=== PATIENT | female | born 1970 | race African-American/Black ===

== ENCOUNTER 2016-11-16 01:27 | Emergency (ER) | payer MEDICARE ==
[2016-11-16 01:54] LABS: BASOPHILS 0.3 % (0.0-2.0); EOSINOPHILS 1.8 % (0-7); HEMATOCRIT 42.5 % (36.0-48.0); HEMOGLOBIN 14.1 g/dL (12-16); IMMATURE GRANULOCYTES 0.2 % (0-5); LYMPHOCYTES 44.3 % (15-50); MCH 29.6 pg (26.0-34.0); MCHC 33.2 g/dL (31.0-37.0); MCV 89.1 fL (80.0-100.0); MEAN PLATELET VOLUME 10.9 fL (7.4-10.4); MONOCYTES 10.1 % (2-11); NEUTROPHILS 43.3 % (40-80); PLATELET COUNT 251 10x3/uL (130-400); RBC 4.77 10x6/uL (4.00-5.40); RDW 14.1 % (11.5-14.5); WBC 11.6 10x3/uL (4.8-10.8)
[2016-11-16 02:17] LABS: ALBUMIN 3.7 g/dL (3.4-5.0); ALKALINE PHOSPHATASE 91 U/L (46-116); ALT (SGPT) 25 U/L (10-68); BILIRUBIN - TOTAL 0.48 mg/dL (0.2-1.3); CALC OSMOLALITY 284 mosm/kg (275-300); CALCIUM 9.7 mg/dL (8.5-10.1); CARBON DIOXIDE 33.1 mmol/L (21.0-32.0); CHLORIDE - SERUM 104 mmol/L (98-107); CKMB 0.9 U/L (0.0-3.6); CREATINE KINASE 215 UL (21-215); GLUCOSE 120 mg/dL (74-106); PROTEIN - SERUM 7.9 g/dL (6.4-8.2); SODIUM 143 mmol/L (136-145); UREA NITROGEN 10 mg/dL (7-18); eGFR NON AFRICAN AMERICAN 63 mL/min (90-120)
[2016-11-16 02:18] LABS: POTASSIUM - SERUM 2.5 mmol/L (3.5-5.1); TROPONIN-I < 0.017 ng/mL (0.000-0.060)
== END 2016-11-16 02:30 | disposition home or self-care (01) ==
LOC: D.ER 01:27
PROVIDERS: Emergency Medicine
DX: M25.512 Pain in left shoulder (principal); S46.912A Strain of unspecified muscle, fascia and tendon at shoulder and upper arm level, left arm, initial encounter; X58.XXXA Exposure to other specified factors, initial encounter; Y93.89 Activity, other specified; Y92.22 Religious institution as the place of occurrence of the external cause; E87.6 Hypokalemia; E78.00 Pure hypercholesterolemia, unspecified; I10 Essential (primary) hypertension; R00.0 Tachycardia, unspecified; I44.60 Unspecified fascicular block

== ENCOUNTER → 2016-12-18 09:46 | Outpatient (CLI) | payer MEDICARE | END | disposition home or self-care (01) | LOC: D.RT 09:46 | DX: R91.8 Other nonspecific abnormal finding of lung field (principal) ==

== ENCOUNTER 2017-01-25 11:03 | Emergency (ER) | payer MEDICARE ==
[2017-01-25 12:26] LABS: BASOPHILS 0.3 % (0.0-2.0); EOSINOPHILS 5.2 % (0-7); HEMATOCRIT 42.2 % (36.0-48.0); HEMOGLOBIN 14.1 g/dL (12-16); IMMATURE GRANULOCYTES 0.1 % (0-5); LYMPHOCYTES 44.2 % (15-50); MCHC 33.4 g/dL (31.0-37.0); MCV 89.8 fL (80.0-100.0); MEAN PLATELET VOLUME 10.7 fL (7.4-10.4); NEUTROPHILS 40.2 % (40-80); PLATELET COUNT 236 10x3/uL (130-400); RDW 14.8 % (11.5-14.5); WBC 9.4 10x3/uL (4.8-10.8)
[2017-01-25 12:53] LABS: ALBUMIN 3.6 g/dL (3.4-5.0); ALKALINE PHOSPHATASE 82 U/L (46-116); ALT (SGPT) 40 U/L (10-68); BILIRUBIN - TOTAL 0.59 mg/dL (0.2-1.3); CALC OSMOLALITY 282 mosm/kg (275-300); CALCIUM 9.3 mg/dL (8.5-10.1); CARBON DIOXIDE 35.4 mmol/L (21.0-32.0); CHLORIDE - SERUM 101 mmol/L (98-107); CREATININE - SERUM 0.9 mg/dL (0.6-1.3); GLUCOSE 120 mg/dL (74-106); PROTEIN - SERUM 7.9 g/dL (6.4-8.2); SODIUM 142 mmol/L (136-145); UREA NITROGEN 11 mg/dL (7-18); eGFR NON AFRICAN AMERICAN 72 mL/min (90-120)
[2017-01-25 12:58] LABS: POTASSIUM - SERUM 2.3 mmol/L (3.5-5.1); PRO BNP 3 pg/mL (0-125); TROPONIN-I < 0.017 ng/mL (0.000-0.060)
== END 2017-01-25 13:45 | disposition home or self-care (01) ==
LOC: D.ER 11:03
PROVIDERS: Family Medicine
DX: J06.9 Acute upper respiratory infection, unspecified (principal); E87.6 Hypokalemia; I10 Essential (primary) hypertension

== ENCOUNTER 2017-04-06 02:39 | Emergency (ER) | payer MEDICARE | END 2017-04-06 04:17 | disposition home or self-care (01) | LOC: D.ER 02:39 | DX: G44.209 Tension-type headache, unspecified, not intractable (principal); I10 Essential (primary) hypertension; E87.6 Hypokalemia ==

== ENCOUNTER 2017-05-12 14:36 | Emergency (ER) | payer MEDICARE | END 2017-05-12 16:32 | disposition home or self-care (01) | LOC: D.ER 14:36 | DX: S62.662A Nondisplaced fracture of distal phalanx of right middle finger, initial encounter for closed fracture (principal); X58.XXXA Exposure to other specified factors, initial encounter; Y93.89 Activity, other specified; Y92.830 Public park as the place of occurrence of the external cause; I10 Essential (primary) hypertension; E87.6 Hypokalemia ==

== ENCOUNTER 2017-08-29 00:37 | Emergency (ER) | payer MEDICARE | END 2017-08-29 02:27 | disposition home or self-care (01) | LOC: D.ER 00:37 | DX: R51 Headache (principal) ==

== ENCOUNTER 2017-09-14 17:28 | Emergency (ER) | payer MEDICARE | END 2017-09-14 21:00 | disposition home or self-care (01) | LOC: D.ER 17:28 | DX: M25.511 Pain in right shoulder (principal); I10 Essential (primary) hypertension ==

== ENCOUNTER 2017-10-16 20:16 | Emergency (ER) | payer MEDICARE | END 2017-10-16 21:27 | disposition home or self-care (01) | LOC: D.ER 20:16 | DX: M19.011 Primary osteoarthritis, right shoulder (principal); I10 Essential (primary) hypertension ==

== ENCOUNTER 2017-12-24 16:02 | Emergency (ER) | payer MEDICARE | END 2017-12-24 21:28 | disposition home or self-care (01) | LOC: D.ER 16:02 | DX: J01.90 Acute sinusitis, unspecified (principal); J06.9 Acute upper respiratory infection, unspecified; B34.9 Viral infection, unspecified; J11.1 Influenza due to unidentified influenza virus with other respiratory manifestations ==

== ENCOUNTER 2018-01-22 18:51 | Emergency (ER) | payer MEDICARE | END 2018-01-22 21:05 | disposition home or self-care (01) | LOC: D.ER 18:51 | DX: M54.6 Pain in thoracic spine (principal); M25.511 Pain in right shoulder; M25.512 Pain in left shoulder; M79.641 Pain in right hand; M19.90 Unspecified osteoarthritis, unspecified site ==

== ENCOUNTER 2018-02-09 20:51 | Emergency (ER) | payer MEDICARE | END 2018-02-09 22:40 | disposition home or self-care (01) | LOC: D.ER 20:51 | DX: M54.12 Radiculopathy, cervical region (principal); M75.21 Bicipital tendinitis, right shoulder; I10 Essential (primary) hypertension ==

== ENCOUNTER 2018-03-30 08:22 | Emergency (ER) | payer MEDICARE | END 2018-03-30 12:44 | disposition left against medical advice (07) | LOC: D.ER 08:22 | DX: Z02.9 Encounter for administrative examinations, unspecified (principal) ==

== ENCOUNTER 2018-03-30 21:43 | Emergency (ER) | payer MEDICARE ==
[2018-03-30 22:38] LABS: APPEARANCE HAZY (CLEAR); BILIRUBIN 2+ (NEGATIVE); COLOR YELLOW (YELLOW); GLUCOSE NEGATIVE (NEGATIVE); KETONE NEGATIVE (NEGATIVE); NITRITE NEGATIVE (NEGATIVE); PROTEIN NEGATIVE (NEGATIVE)
[2018-03-30 22:39] LABS: RED CELLS - URINE 0-5 /hpf (0-5); WHITE CELLS - URINE 0-5 /hpf (0-5)
[2018-03-30 22:40] LABS: BACTERIA FEW /hpf (NONE SEEN)
[2018-03-30 22:41] LABS: UDS - AMPHET NEGATIVE QUAL (NEGATIVE); UDS - BARB NEGATIVE QUAL (NEGATIVE); UDS - BENZO NEGATIVE QUAL (NEGATIVE); UDS - COCAINE NEGATIVE QUAL (NEGATIVE); UDS - OPIATE NEGATIVE QUAL (NEGATIVE); UDS - PCP NEGATIVE QUAL (NEGATIVE); UDS - THC NEGATIVE QUAL (NEGATIVE)
== END 2018-03-30 23:00 | disposition home or self-care (01) ==
LOC: D.ER 21:43
PROVIDERS: Nurse Practitioner Family
DX: J02.9 Acute pharyngitis, unspecified (principal)

== ENCOUNTER 2018-04-27 21:54 | Emergency (ER) | payer MEDICARE ==
[~2018-04-27] VITALS: Ht 167.6 cm; Wt 118.6 kg
[~2018-04-27 21:54] MED LIST: DOXYCYCLINE HY100 M2 PO; TYLENOL W/CODEI1 TAB PO
[2018-04-27 22:29] VITALS: Ht 167.6 cm; Wt 118.6 kg
[2018-04-28 00:44] VITALS: BP 116/78
== END 2018-04-28 00:45 | disposition home or self-care (01) ==
LOC: D.ER 21:54
DX: J32.9 Chronic sinusitis, unspecified (principal); R51 Headache; I10 Essential (primary) hypertension

== ENCOUNTER 2018-08-14 10:00 | Emergency (ER) | payer MEDICARE, MEDICAID ==
[~2018-08-14] VITALS: Ht 167.6 cm; Wt 119.1 kg
[2018-08-14 10:06] VITALS: Ht 167.6 cm; Wt 119.1 kg
[2018-08-14] MEDS ORDERED: HYDROCHLOROTH12.5 M1 (10:08)
[2018-08-14] MEDS ORDERED: VENTOLIN HFA18 GM (10:08)
[2018-08-14] MEDS ORDERED: METOPROLOL TART50 MG PO (10:08)
[2018-08-14] MEDS ORDERED: ZOCOR40 MG PO (10:08)
[2018-08-14] MEDS ORDERED: KEFLEX500 MG PO (10:59)
[2018-08-14] MEDS ORDERED: PHENERGAN DM SYR5 ML PO (10:59)
[2018-08-14] MEDS ORDERED: MEDROL DOSE PACK4 MG PO (10:59)
[2018-08-14] MEDS ORDERED: CLARITIN 10 MG10 MG PO (10:59)
[2018-08-14 11:09] VITALS: BP 151/99
== END 2018-08-14 11:10 | disposition home or self-care (01) ==
LOC: D.ER 10:00
DX: J45.998 Other asthma (principal); R09.89 Other specified symptoms and signs involving the circulatory and respiratory systems; I10 Essential (primary) hypertension

== ENCOUNTER 2018-09-01 01:18 | Emergency (ER) | payer MEDICARE, MEDICAID ==
[~2018-09-01] VITALS: Ht 167.6 cm; Wt 109.1 kg
[~2018-09-01 01:18] MED LIST changes: +CLARITIN 10 MG10 MG PO; +HYDROCHLOROTH12.5 M1; +KEFLEX500 MG PO; +MEDROL DOSE PACK4 MG PO; +METOPROLOL TART50 MG PO; +PHENERGAN DM SYR5 ML PO; +VENTOLIN HFA18 GM; +ZOCOR40 MG PO
[2018-09-01 01:26] VITALS: Ht 167.6 cm; Wt 109.1 kg
[2018-09-01 02:39] LABS: BASOPHILS 0.2 % (0-2); EOSINOPHILS 4.2 % (0-7); HEMATOCRIT 41.2 % (36.0-48.0); HEMOGLOBIN 13.8 g/dL (12-16); IMMATURE GRANULOCYTES 0.3 % (0-5); LYMPHOCYTES 47.8 % (15-50); MCH 30.1 pg (26.0-34.0); MCHC 33.5 g/dL (31.0-37.0); MCV 89.8 fL (80.0-100.0); MEAN PLATELET VOLUME 10.9 fL (7.4-10.4); MONOCYTES 8.2 % (2-11); NEUTROPHILS 39.3 % (40-80); PLATELET COUNT 274 10x3/uL (130-400); RBC 4.59 10x6/uL (4.00-5.40); RDW 14.6 % (11.5-14.5); WBC 10.7 10x3/uL (4.8-10.8)
[2018-09-01 03:01] LABS: ALBUMIN 3.4 g/dL (3.4-5.0); ALKALINE PHOSPHATASE 99 U/L (46-116); ALT (SGPT) 30 U/L (10-68); BILIRUBIN - TOTAL 0.24 mg/dL (0.2-1.3); CALC OSMOLALITY 284 mosm/kg (275-300); CARBON DIOXIDE 32.5 mmol/L (21.0-32.0); CHLORIDE - SERUM 101 mmol/L (98-107); CREATININE - SERUM 0.8 mg/dL (0.6-1.3); GLUCOSE 119 mg/dL (74-106); POTASSIUM - SERUM 3.2 mmol/L (3.5-5.1); PROTEIN - SERUM 7.9 g/dL (6.4-8.2); SODIUM 143 mmol/L (136-145); TROPONIN-I < 0.017 ng/mL (0.000-0.060); UREA NITROGEN 11 mg/dL (7-18); eGFR NON AFRICAN AMERICAN 81 mL/min (90-120)
[2018-09-01] MEDS ORDERED: DICLOFENAC SODI50 MG PO (03:08)
[2018-09-01 03:30] VITALS: BP 125/82
== END 2018-09-01 03:31 | disposition home or self-care (01) ==
LOC: D.ER 01:18
PROVIDERS: Family Medicine
DX: R07.89 Other chest pain (principal); I10 Essential (primary) hypertension

== ENCOUNTER 2018-10-03 11:43 | Emergency (ER) | payer MEDICARE, MEDICAID ==
[~2018-10-03 11:43] MED LIST changes: +DICLOFENAC SODI50 MG PO
[2018-10-03 11:50] VITALS: BP 124/68; Ht 167.6 cm
[2018-10-03] MEDS ORDERED: NORCO 7.5/325 T1 TA1 PO (12:36)
[2018-10-13 09:22] VITALS: Ht 167.6 cm
== END 2018-10-03 12:55 | disposition home or self-care (01) ==
LOC: D.ER 11:43
DX: M54.2 Cervicalgia (principal); M54.6 Pain in thoracic spine; I10 Essential (primary) hypertension; Z87.09 Personal history of other diseases of the respiratory system

== ENCOUNTER 2018-10-11 18:20 | Inpatient (IN) | payer MEDICARE, MEDICAID ==
[~2018-10-11] VITALS: Ht 167.6 cm; Wt 117.9 kg
--- NOTE | ~2018-10-11 | MORECARE ---
CASE MANAGEMENT DISCHARGE SUMMARY PATIENT: JASON MCKENZIE UNIT: [id number] ADM DATE: 10/11/18 AGE: 48 : 72 SEX: F ROOM/BED: D.2223 AUTHOR: ISABEL PRATT PHYSICIAN: REFERRING PHYSICIAN: SHAILESH CANALES MD DATE OF SERVICE: 10/13/18 Discharge Plan Patient Name: JASON MCKENZIE [facility] [facility] 1970 Planned Disposition: Home Anticipated Discharge Date: Discharge Date: Expected LOS: Initial Reviewer: [email or web address] Initial Review Date: 10/13/2018 Generated: 10/13/18 5:40 pm DCPIA - Discharge Planning Initial Assessment Updated by [email or web address]: Ivania Howe on 10/13/18 4:40 pm * Is the patient Alert and Oriented? Yes * How many steps to enter\exit or inside your home? 0/0 * PCP Dr. Zavala * Pharmacy [facility] * Preadmission Environment Home Alone * ADLs Independent * Equipment None * List name and contact numbers for known caregivers / representatives who currently or will assist patient after discharge: Jocerex - DTR - [phone] * Verbal permission to speak to the caregivers and representatives has been obtained from the patient. Yes * Community resources currently utilized None * Additional services required to return to the preadmission environment? No * Can the patient safely return to the preadmission environment? Yes * Has this patient been hospitalized within the prior 30 days at any hospital? No Patient Name: JASON MCKENZIE Page [id number] at 1640 All edits/amendments must be made on the electronic document DICTATION DATE: 10/13/18 1640 GELATIN MAKER UTILITY: KARLY 10/13/18 1640 RPT#: [id number] HI DATE: STATUS: ADM IN [facility] [address] [place] [address] END OF REPORT
--- NOTE | ~2018-10-11 | MORECARE ---
CASE MANAGEMENT DISCHARGE SUMMARY PATIENT: JASON MCKENZIE UNIT: [id number] ADM DATE: 10/11/18 AGE: 48 : 72 SEX: F ROOM/BED: D.2223 AUTHOR: ISABEL PRATT PHYSICIAN: REFERRING PHYSICIAN: SHAILESH CANALES MD DATE OF SERVICE: 10/15/18 Discharge Plan Patient Name: JASON MCKENZIE Facility: [facility]:[place] : 1970 Planned Disposition: Home Anticipated Discharge Date: Discharge Date: 10/14/2018 Expected LOS: Initial Reviewer: [email or web address] Initial Review Date: 10/13/2018 Generated: 10/15/18 4:06 pm Comments DCP- Discharge Planning Updated by [email or web address]: Ivania Howe on 10/14/18 9:[address] Patient Name: JASON MCKENZIE Encounter No: [id number] : 1970 Primary Insurance: [employer] MEDICARE ADV Anticipated DC Date: Planned Disposition: Home External Planned Provider: : DCP follow-up note: Patient in agreement with discharge plan. States her daughter will pick her up today. Declines HHS. States she has had dietary instruction and shows me her packet. No changes to plan. Case management will follow and assist as needed. Ivania Carley DCP- Discharge Planning Updated by [email or web address]: Ivania Howe on 10/13/18 3:[address] Patient Name: JASON MCKENZIE Admission Status: ER Accout number: [id number] Admission Date: 10-11-2018 : 1970 Admission Diagnosis: Attending: SHAILESH CANALES Current LOS: 2 Anticipated DC Date: Planned Disposition: Home Primary Insurance: [employer] MEDICARE ADV Discharge Planning Comments: CM met with patient to discuss discharge planning, her daughter and three grand children are in the room. She states she lives alone in a one story home. She is independent with all ADL's and IADL's. States she does not have any DME or need any DME. She declines need for home health services. States her discharge plan is to return home and it is a safe environment. States her daughter will take her home. No needs identified at this time. CM will continue to follow and assist with discharge planning/needs. Browning Processor: Ivania Howe DCPIA - Discharge Planning Initial Assessment Updated by [email or web address]: Ivania Howe on 10/13/18 4:40 pm * Is the patient Alert and Oriented? Yes * How many steps to enter\exit or inside your home? 0/0 * PCP Dr. Zavala * Pharmacy [facility] * Preadmission Environment Home Alone * ADLs Independent * Equipment None * List name and contact numbers for known caregivers / representatives who currently or will assist patient after discharge: Jocecalgutierrez [facility] - [phone] * Verbal permission to speak to the caregivers and representatives has been obtained from the patient. Yes * Community resources currently utilized None * Additional services required to return to the preadmission environment? No * Can the patient safely return to the preadmission environment? Yes * Has this patient been hospitalized within the prior 30 days at any hospital? No Coverage Notice Reviewer: [id number] - Ivania Howe Notice Issued Date-Time: 10/14/2018 10:08 Notice Type: IM Discharge Notice Notice Delivered To: Patient Relationship to Patient: Self Header Setup Operator Name: Delivery Method: HAND - Hand Delivered Frances Days: Prior Verbal Notification: Recipient Understood Notice: Yes Recipient Signature: Yes Med Rec Note Co-signed by Attending: Coverage Notice Comment: IMM explained, signed, copy given, original placed in MR Last DP export: 10/14/18 9:18 Patient Name: JASON MCKENZIE Page [id number] at 1506 All edits/amendments must be made on the electronic document DICTATION DATE: 10/15/[address] P[address] OPERATOR: KARLY 10/15/18 1505 RPT#: [id number] DC DATE:10/14/18 STATUS: DIS IN [facility] [address] [place] [address] END OF REPORT
--- NOTE | ~2018-10-11 | MORECARE ---
CASE MANAGEMENT DISCHARGE SUMMARY PATIENT: JASON MCKENZIE UNIT: [id number] ADM DATE: 10/11/18 AGE: 48 : 72 SEX: F ROOM/BED: D.2223 AUTHOR: SANTA,DOC PHYSICIAN: REFERRING PHYSICIAN: SHAILESH CANALES MD DATE OF SERVICE: 10/13/18 Discharge Plan Patient Name: JASON MCKENZIE [facility] [facility] 1970 Planned Disposition: Home Anticipated Discharge Date: Discharge Date: Expected LOS: Initial Reviewer: [email or web address] Initial Review Date: 10/13/2018 Generated: 10/13/18 5:47 pm Comments DCP- Discharge Planning Updated by [email or web address]: Ivania Howe on 10/13/18 3:[address] Patient Name: JASON MCKENZIE Admission Status: ER Accout number: [id number] Admission Date: 10-11-2018 : 1970 Admission Diagnosis: Attending: SHAILESH CANALES Current LOS: 2 Anticipated DC Date: Planned Disposition: Home Primary Insurance: [employer] MED[employer]ARE ADV Discharge Planning Comments: CM met with patient to discuss discharge planning, her daughter and three grand children are in the room. She states she lives alone in a one story home. She is independent with all ADL's and IADL's. States she does not have any DME or need any DME. She declines need for home health services. States her discharge plan is to return home and it is a safe environment. States her daughter will take her home. No needs identified at this time. CM will continue to follow and assist with discharge planning/needs. Provider Relations Representative: Ivania Howe DCPIA - Discharge Planning Initial Assessment Updated by [email or web address]: Ivania Howe on 10/13/18 4:40 pm * Is the patient Alert and Oriented? Yes * How many steps to enter\exit or inside your home? 0/0 * PCP Dr. Zavala * Pharmacy [facility] * Preadmission Environment Home Alone * ADLs Independent * Equipment None * List name and contact numbers for known caregivers / representatives who currently or will assist patient after discharge: Emmanuel [facility] - [phone] * Verbal permission to speak to the caregivers and representatives has been obtained from the patient. Yes * Community resources currently utilized None * Additional services required to return to the preadmission environment? No * Can the patient safely return to the preadmission environment? Yes * Has this patient been hospitalized within the prior 30 days at any hospital? No Last DP export: 10/13/18 3:40 Patient Name: JASON MCKENZIE Page [id number] at 1647 All edits/amendments must be made on the electronic document DICTATION DATE: 10/13/181646 CLOTHES DRIER ASSEMBLER: KARLY 10/13/181646 RPT#: [id number] DC DATE: STATUS: ADM IN [facility] [address] [place] [address] END OF REPORT
--- NOTE | ~2018-10-11 | MORECARE ---
CASE MANAGEMENT DISCHARGE SUMMARY PATIENT: JASON MCKENZIE UNIT: [id number] ADM DATE: 10/11/18 AGE: 48 : 72 SEX: F ROOM/BED: D.2223 AUTHOR: ISABEL PRATT PHYSICIAN: REFERRING PHYSICIAN: SHAILESH CANALES MD DATE OF SERVICE: 10/14/18 Discharge Plan Patient Name: JASON MCKENZIE Facility[facility] : 1970 Planned Disposition: Home Anticipated Discharge Date: Discharge Date: Expected LOS: Initial Reviewer: [email or web address] Initial Review Date: 10/13/2018 Generated: 10/14/18 11:18 am Comments DCP- Discharge Planning Updated by [email or web address]: Ivania Howe on 10/14/18 9:[address] Patient Name: JASON MCKENZIE Encounter No: [id number] : 1970 Primary Insurance: [employer] MEDICARE ADV Anticipated DC Date: Planned Disposition: Home External Planned Provider: : DCP follow-up note: Patient in agreement with discharge plan. States her daughter will pick her up today. Declines HHS. States she has had dietary instruction and shows me her packet. No changes to plan. Case management will follow and assist as needed. Ivania Howe DCP- Discharge Planning Updated by [email or web address]: Ivania Howe on 10/13/18 3:[address] Patient Name: JASON MCKENZIE Admission Status: ER Accout number: [id number] Admission Date: 10-11-2018 : 1970 Admission Diagnosis: Attending: SHAILESH CANALES Current LOS: 2 Anticipated DC Date: Planned Disposition: Home Primary Insurance: [employer] MED[employer]ARE ADV Discharge Planning Comments: CM met with patient to discuss discharge planning, her daughter and three grand children are in the room. She states she lives alone in a one story home. She is independent with all ADL's and IADL's. States she does not have any DME or need any DME. She declines need for home health services. States her discharge plan is to return home and it is a safe environment. States her daughter will take her home. No needs identified at this time. CM will continue to follow and assist with discharge planning/needs. Perioperative Educator: Ivania Howe DCPIA - Discharge Planning Initial Assessment Updated by [email or web address]: Ivania Howe on 10/13/18 4:40 pm * Is the patient Alert and Oriented? Yes * How many steps to enter\exit or inside your home? 0/0 * PCP Dr. Zavala * Pharmacy [facility] * Preadmission Environment Home Alone * ADLs Independent * Equipment None * List name and contact numbers for known caregivers / representatives who currently or will assist patient after discharge: Emmanuel [facility] - [phone] * Verbal permission to speak to the caregivers and representatives has been obtained from the patient. Yes * Community resources currently utilized None * Additional services required to return to the preadmission environment? No * Can the patient safely return to the preadmission environment? Yes * Has this patient been hospitalized within the prior 30 days at any hospital? No Coverage Notice Reviewer: [id number] - Ivania Howe Notice Issued Date-Time: 10/14/2018 10:08 Notice Type: IM Discharge Notice Notice Delivered To: Patient Relationship to Patient: Self Spinning Bath Patroller Name: Delivery Method: HAND - Hand Delivered Frances Days: Prior Verbal Notification: Recipient Understood Notice: Yes Recipient Signature: Yes Med Rec Note Co-signed by Attending: Coverage Notice Comment: IMM explained, signed, copy given, original placed in MR Last DP export: 10/13/18 3:47 Patient Name: JASON MCKENZIE Page 14414 at 1019 All edits/amendments must be made on the electronic document DICTATION DATE: 10/14/18 1018 PROJECT DEVELOPMENT ENGINEER: KARLY 10/14/18 1018 RPT#: [id number] DC DATE: STATUS: ADM IN [facility] [address] [place] [address] END OF REPORT
[~2018-10-11 18:20] MED LIST changes: +NORCO 7.5/325 T1 TA1 PO
[2018-10-11 19:38] LABS: HEMATOCRIT 39.8 % (36.0-48.0); HEMOGLOBIN 13.3 g/dL (12-16); MCH 29.8 pg (26.0-34.0); MCHC 33.4 g/dL (31.0-37.0); MCV 89.2 fL (80.0-100.0); MEAN PLATELET VOLUME 10.4 fL (7.4-10.4); PLATELET COUNT 261 10x3/uL (130-400); RBC 4.46 10x6/uL (4.00-5.40); RDW 14.3 % (11.5-14.5); WBC 8.1 10x3/uL (4.8-10.8)
[2018-10-11 19:40] LABS: ALBUMIN 3.4 g/dL (3.4-5.0); ALKALINE PHOSPHATASE 99 U/L (46-116); ALT (SGPT) 25 U/L (10-68); BILIRUBIN - TOTAL 0.24 mg/dL (0.2-1.3); CALC OSMOLALITY 282 mosm/kg (275-300); CALCIUM 9.4 mg/dL (8.5-10.1); CARBON DIOXIDE 34.8 mmol/L (21.0-32.0); CHLORIDE - SERUM 102 mmol/L (98-107); CREATININE - SERUM 0.8 mg/dL (0.6-1.3); GLUCOSE 139 mg/dL (74-106); PROTEIN - SERUM 7.6 g/dL (6.4-8.2); SODIUM 141 mmol/L (136-145); UREA NITROGEN 12 mg/dL (7-18); eGFR NON AFRICAN AMERICAN 81 mL/min (90-120)
[2018-10-11 19:44] LABS: POTASSIUM - SERUM 2.7 mmol/L (3.5-5.1)
[2018-10-11 20:08] LABS: EOSINOPHILS 9 % (0-7); LYMPHOCYTES 46 % (15-50); MONOCYTES 4 % (2-11); NEUTROPHILS 41 % (40-80); PLATELET ESTIMATE NORMAL
[2018-10-11 20:09] LABS: ROULEAUX OCC
[2018-10-11 21:02] LABS: LIPASE 227 U/L (73-393); PRO BNP 26 pg/mL (0-125)
[2018-10-11 21:08] LABS: TROPONIN-I < 0.017 ng/mL (0.000-0.060)
[2018-10-12] VITALS (7 sets, daily range): BP systolic 93–172; BP diastolic 59–92; BMI 42.0
[2018-10-12 00:33] LABS: APPEARANCE CLEAR (CLEAR); BILIRUBIN NEGATIVE (NEGATIVE); COLOR YELLOW (YELLOW); GLUCOSE NEGATIVE (NEGATIVE); KETONE NEGATIVE (NEGATIVE); NITRITE NEGATIVE (NEGATIVE); PROTEIN NEGATIVE (NEGATIVE); SPECIFIC GRAVITY 1.015 (1.005-1.020); UROBILINOGEN NORMAL (NORMAL)
[2018-10-12 00:37] LABS: BACTERIA FEW /hpf (NONE SEEN); EPITHELIAL CELLS 0-5 /hpf (0-5); RED CELLS - URINE NONE SEEN /hpf (0-5)
[2018-10-12 10:26] LABS: BASOPHILS 0 % (0-2); EOSINOPHILS 0 % (0-7); HEMATOCRIT 40.6 % (36.0-48.0); HEMOGLOBIN 13.9 g/dL (12-16); IMMATURE GRANULOCYTES 0.3 % (0-5); LYMPHOCYTES 22.3 % (15-50); MCH 30.4 pg (26.0-34.0); MCHC 34.2 g/dL (31.0-37.0); MCV 88.8 fL (80.0-100.0); MEAN PLATELET VOLUME 11.3 fL (7.4-10.4); MONOCYTES 1.6 % (2-11); NEUTROPHILS 75.8 % (40-80); PLATELET COUNT 293 10x3/uL (130-400); RBC 4.57 10x6/uL (4.00-5.40); RDW 14.3 % (11.5-14.5); WBC 10.1 10x3/uL (4.8-10.8)
[2018-10-12 10:40] LABS: ALBUMIN 3.2 g/dL (3.4-5.0); BILIRUBIN - TOTAL 0.34 mg/dL (0.2-1.3); CALCIUM 9.5 mg/dL (8.5-10.1); CARBON DIOXIDE 28.4 mmol/L (21.0-32.0); CREATININE - SERUM 0.9 mg/dL (0.6-1.3); MAGNESIUM - SERUM 1.5 mg/dL (1.8-2.4); PHOSPHOROUS 2.4 mg/dL (2.5-4.9); POTASSIUM - SERUM 3.4 mmol/L (3.5-5.1); PROTEIN - SERUM 7.4 g/dL (6.4-8.2)
[2018-10-13 04:19] LABS: HEMATOCRIT 38.3 % (36.0-48.0); MCH 30.2 pg (26.0-34.0); MCHC 33.9 g/dL (31.0-37.0); MCV 88.9 fL (80.0-100.0); MEAN PLATELET VOLUME 10.9 fL (7.4-10.4); PLATELET COUNT 287 10x3/uL (130-400); RBC 4.31 10x6/uL (4.00-5.40); RDW 14.6 % (11.5-14.5); WBC 20.3 10x3/uL (4.8-10.8)
[2018-10-13 04:41] LABS: ALBUMIN 3.1 g/dL (3.4-5.0); ALKALINE PHOSPHATASE 83 U/L (46-116); ALT (SGPT) 22 U/L (10-68); BILIRUBIN - TOTAL 0.21 mg/dL (0.2-1.3); CALC OSMOLALITY 284 mosm/kg (275-300); CARBON DIOXIDE 29.1 mmol/L (21.0-32.0); CHLORIDE - SERUM 104 mmol/L (98-107); CHOL - HDL RATIO 4.2 ratio (2.3-4.1); CHOLESTEROL, TOTAL 207 mg/dL (0-200); CREATININE - SERUM 0.8 mg/dL (0.6-1.3); GLUCOSE 205 mg/dL (74-106); HDL CHOLESTEROL 49 mg/dL (32-96); LDL CHOLESTEROL 147 mg/dL (0-100); POTASSIUM - SERUM 3.3 mmol/L (3.5-5.1); PROTEIN - SERUM 7.4 g/dL (6.4-8.2); SODIUM 140 mmol/L (136-145); TRIGLYCERIDE 58 mg/dL (30-200); UREA NITROGEN 13 mg/dL (7-18); eGFR NON AFRICAN AMERICAN 81 mL/min (90-120)
[2018-10-13 05:47] LABS: LYMPHOCYTES 14 % (15-50); MONOCYTES 4 % (2-11); NEUTROPHILS 77 % (40-80); PLATELET ESTIMATE NORMAL
[2018-10-13 05:52] VITALS: BP 110/70
[2018-10-13 05:52] LABS: PHOSPHOROUS 2.3 mg/dL (2.5-4.9)
[2018-10-13 06:03] LABS: MAGNESIUM - SERUM 1.9 mg/dL (1.8-2.4)
[2018-10-13 08:01] VITALS: BP 99/53
[2018-10-13 09:22] VITALS: Ht 167.6 cm; Wt 117.9 kg
[2018-10-13 17:41] VITALS: BP 99/71
[2018-10-13 22:38] VITALS: BP 138/93
[2018-10-14 01:06] VITALS: BP 124/66
[2018-10-14 05:02] LABS: BASOPHILS 0 % (0-2); EOSINOPHILS 0 % (0-7); HEMATOCRIT 35.3 % (36.0-48.0); LYMPHOCYTES 16.4 % (15-50); MCH 30.5 pg (26.0-34.0); MCV 89.6 fL (80.0-100.0); MEAN PLATELET VOLUME 10.9 fL (7.4-10.4); MONOCYTES 8.3 % (2-11); NEUTROPHILS 74.3 % (40-80); PLATELET COUNT 261 10x3/uL (130-400); RBC 3.94 10x6/uL (4.00-5.40); RDW 15.3 % (11.5-14.5); WBC 19.1 10x3/uL (4.8-10.8)
[2018-10-14 05:26] LABS: ALBUMIN 2.9 g/dL (3.4-5.0); ALKALINE PHOSPHATASE 68 U/L (46-116); ALT (SGPT) 20 U/L (10-68); BILIRUBIN - TOTAL 0.22 mg/dL (0.2-1.3); CALCIUM 8.4 mg/dL (8.5-10.1); CHLORIDE - SERUM 107 mmol/L (98-107); CREATININE - SERUM 0.8 mg/dL (0.6-1.3); POTASSIUM - SERUM 3.7 mmol/L (3.5-5.1); PROTEIN - SERUM 6.7 g/dL (6.4-8.2); SODIUM 142 mmol/L (136-145); UREA NITROGEN 16 mg/dL (7-18); eGFR NON AFRICAN AMERICAN 81 mL/min (90-120)
[2018-10-14 05:35] LABS: CALC OSMOLALITY 285 mosm/kg (275-300); GLUCOSE 133 mg/dL (74-106); PHOSPHOROUS 3.4 mg/dL (2.5-4.9)
[2018-10-14 06:31] VITALS: BP 129/85
[2018-10-14] MEDS ORDERED: TESSALON PERLE100 MG PO (09:26)
[2018-10-14] MEDS ORDERED: MUCINEX600 MG PO (09:26)
[2018-10-14] MEDS ORDERED: GLUCOPHAGE500 MG PO (09:26)
[2018-10-14] MEDS ORDERED: ZITHROMAX500 MG PO (09:26)
[2018-10-14] MEDS ORDERED: PREDNISONE10 MG PO (09:27)
[2018-10-14] MEDS ORDERED: OMNICEF300 MG PO (09:27)
[2018-10-14] MEDS ORDERED: BAYER CHEWABLE81 MG PO (09:28)
[2018-10-14] MEDS ORDERED: PRAVACHOL20 MG PO (09:28)
[2018-10-14 09:39] VITALS: BP 123/84
== END 2018-10-14 13:02 | disposition home or self-care (01) | DRG 194 ==
LOC: D.ER 18:20 → D.EDHOLD 22:11 → D.MS 22:11
PROVIDERS: Family Medicine
DX: J18.9 Pneumonia, unspecified organism (principal); Z68.41 Body mass index [BMI] 40.0-44.9, adult; I10 Essential (primary) hypertension; E66.9 Obesity, unspecified; Z71.3 Dietary counseling and surveillance; E87.6 Hypokalemia; E83.42 Hypomagnesemia; E83.39 Other disorders of phosphorus metabolism; E11.65 Type 2 diabetes mellitus with hyperglycemia

== ENCOUNTER 2018-11-13 10:54 | Emergency (ER) | payer MEDICARE, MEDICAID ==
[~2018-11-13] VITALS: Ht 167.6 cm; Wt 122.7 kg
[~2018-11-13 10:54] MED LIST changes: +BAYER CHEWABLE81 MG PO; +GLUCOPHAGE500 MG PO; +MUCINEX600 MG PO; +OMNICEF300 MG PO; +PRAVACHOL20 MG PO; +PREDNISONE10 MG PO; +TESSALON PERLE100 MG PO; +ZITHROMAX500 MG PO
[2018-11-13 11:03] VITALS: Ht 167.6 cm; Wt 122.7 kg
[2018-11-13] MEDS ORDERED: CORTISPORIN OTI10 M1 LEFT EAR (12:03)
[2018-11-13] MEDS ORDERED: VOLTAREN75 MG PO (12:05)
[2018-11-13] MEDS ORDERED: OMEPRAZOLE40 MG PO (12:05)
[2018-11-13 12:29] VITALS: BP 122/90
== END 2018-11-13 12:31 | disposition home or self-care (01) ==
LOC: D.ER 10:54
DX: H60.502 Unspecified acute noninfective otitis externa, left ear (principal); E11.9 Type 2 diabetes mellitus without complications; I10 Essential (primary) hypertension

== ENCOUNTER 2018-12-11 12:07 | Emergency (ER) | payer MEDICARE, MEDICAID ==
[~2018-12-11] VITALS: Ht 167.6 cm; Wt 122.7 kg
[~2018-12-11 12:07] MED LIST changes: +CORTISPORIN OTI10 M1 LEFT EAR; +OMEPRAZOLE40 MG PO; +VOLTAREN75 MG PO
[2018-12-11 12:31] VITALS: Ht 167.6 cm; Wt 122.7 kg
[2018-12-11] MEDS ORDERED: INDOCIN25 MG PO (14:32)
[2018-12-11 14:51] VITALS: BP 129/87
== END 2018-12-11 14:50 | disposition home or self-care (01) ==
LOC: D.ER 12:07
DX: M79.602 Pain in left arm (principal); M79.601 Pain in right arm; E11.9 Type 2 diabetes mellitus without complications; I10 Essential (primary) hypertension

== ENCOUNTER → 2018-12-22 18:45 | Outpatient (CLI) | payer MEDICARE, MEDICAID ==
[2018-12-11 12:31] VITALS: BMI 43.6
[~2018-12-22 18:45] MED LIST changes: +INDOCIN25 MG PO
== END | disposition home or self-care (01) ==
LOC: D.RT 09:15
DX: J45.901 Unspecified asthma with (acute) exacerbation (principal); J20.9 Acute bronchitis, unspecified

== ENCOUNTER → 2019-01-06 14:48 | Outpatient (CLI) | payer MEDICARE, MEDICAID ==
[2018-12-11 12:31] VITALS: BMI 43.6
== END | disposition home or self-care (01) ==
LOC: D.RAD 14:00
DX: J20.8 Acute bronchitis due to other specified organisms (principal)

== ENCOUNTER 2019-01-24 19:30 | Emergency (ER) | payer MEDICARE, MEDICAID ==
[~2019-01-24] VITALS: Ht 167.6 cm; Wt 123.2 kg
[2019-01-24 19:40] VITALS: Ht 167.6 cm; Wt 123.2 kg
[2019-01-24] MEDS ORDERED: KLOR-CON M2020 MEQ PO (19:45)
[2019-01-24] MEDS ORDERED: ULTRAM50 MG PO (21:22)
[2019-01-24 21:45] VITALS: BP 127/83
== END 2019-01-24 21:46 | disposition home or self-care (01) ==
LOC: D.ER 19:30
DX: M54.2 Cervicalgia (principal)

== ENCOUNTER 2019-03-31 20:26 | Emergency (ER) | payer MEDICARE, MEDICAID ==
[~2019-03-31] VITALS: Ht 167.6 cm; Wt 122.7 kg
[~2019-03-31 20:26] MED LIST changes: +KLOR-CON M2020 MEQ PO; +ULTRAM50 MG PO
[2019-03-31 20:32] VITALS: Ht 167.6 cm; Wt 122.7 kg
[2019-04-01 00:11] VITALS: BP 122/81
== END 2019-04-01 00:10 | disposition home or self-care (01) ==
LOC: D.ER 20:26
DX: M54.2 Cervicalgia (principal); M54.9 Dorsalgia, unspecified

== ENCOUNTER 2019-05-30 13:59 | Emergency (ER) | payer MEDICARE, MEDICAID ==
[~2019-05-30] VITALS: Ht 167.6 cm; Wt 125.9 kg
[2019-05-30 14:08] VITALS: Ht 167.6 cm; Wt 125.9 kg
[2019-05-30 15:45] LABS: APPEARANCE CLEAR (CLEAR); BILIRUBIN NEGATIVE (NEGATIVE); COLOR YELLOW (YELLOW); GLUCOSE NEGATIVE (NEGATIVE); KETONE NEGATIVE (NEGATIVE); NITRITE NEGATIVE (NEGATIVE); PROTEIN NEGATIVE (NEGATIVE); SPECIFIC GRAVITY 1.015 (1.005-1.020); UROBILINOGEN NORMAL (NORMAL)
[2019-05-30] MEDS ORDERED: ZANAFLEX4 MG PO (16:20)
[2019-05-30 16:50] VITALS: BP 141/96
== END 2019-05-30 16:50 | disposition home or self-care (01) ==
LOC: D.ER 13:59
PROVIDERS: Family Medicine
DX: M79.18 Myalgia, other site (principal); G44.209 Tension-type headache, unspecified, not intractable

== ENCOUNTER → 2019-06-30 14:25 | Outpatient (CLI) | payer MEDICARE, MEDICAID ==
[2019-05-30 14:08] VITALS: BMI 44.8
[~2019-06-30 14:25] MED LIST changes: +HYDROCODONE-A1 UDTA2 PO; +NAPROSYN500 MG PO; +ZANAFLEX4 MG PO
[2019-06-30 15:16] LABS: BASOPHILS 0.2 % (0-2); HEMATOCRIT 40.7 % (36.0-48.0); HEMOGLOBIN 13.9 g/dL (12-16); IMMATURE GRANULOCYTES 0.5 % (0-5); MCH 30.2 pg (26.0-34.0); MCHC 34.2 g/dL (31.0-37.0); MCV 88.3 fL (80.0-100.0); MONOCYTES 9.8 % (2-11); NEUTROPHILS 39.5 % (40-80); PLATELET COUNT 287 10x3/uL (130-400); RBC 4.61 10x6/uL (4.00-5.40); RDW 14.9 % (11.5-14.5); WBC 16.4 10x3/uL (4.8-10.8)
== END | disposition home or self-care (01) ==
LOC: D.RT 14:00
PROVIDERS: ATTEND Internal Medicine Pulmonary Disease
DX: J45.909 Unspecified asthma, uncomplicated (principal)

== ENCOUNTER 2019-08-14 09:00 | Emergency (ER) | payer MEDICARE, MEDICAID ==
[~2019-08-14] VITALS: Ht 167.6 cm; Wt 122.7 kg
[~2019-08-14 09:00] MED LIST changes: -HYDROCODONE-A1 UDTA2 PO; -NAPROSYN500 MG PO
[2019-08-14 09:05] VITALS: Ht 167.6 cm; Wt 122.7 kg
[2019-08-14] MEDS ORDERED: NAPROSYN500 MG PO (09:22)
[2019-08-14 09:40] VITALS: BP 118/82
== END 2019-08-14 09:40 | disposition home or self-care (01) ==
LOC: D.ER 09:00
DX: S29.011A Strain of muscle and tendon of front wall of thorax, initial encounter (principal); X58.XXXA Exposure to other specified factors, initial encounter; I10 Essential (primary) hypertension

== ENCOUNTER 2019-08-17 02:49 | Emergency (ER) | payer MEDICARE, MEDICAID ==
[~2019-08-17] VITALS: Ht 167.6 cm; Wt 122.7 kg
[~2019-08-17 02:49] MED LIST changes: +NAPROSYN500 MG PO
[2019-08-17 02:56] VITALS: BP 144/93; Ht 167.6 cm; Wt 122.7 kg
== END 2019-08-17 04:24 | disposition home or self-care (01) ==
LOC: D.ER 02:49
PROVIDERS: Family Medicine
DX: E11.9 Type 2 diabetes mellitus without complications (principal)

== ENCOUNTER 2019-08-20 20:10 | Emergency (ER) | payer MEDICARE, MEDICAID ==
[~2019-08-20] VITALS: Ht 167.6 cm; Wt 122.7 kg
[2019-08-20 20:24] VITALS: Ht 167.6 cm; Wt 122.7 kg
[2019-08-20] MEDS ORDERED: HYDROCODONE-A1 UDTA2 PO (20:29)
[2019-08-20 23:04] VITALS: BP 124/61
== END 2019-08-20 23:05 | disposition home or self-care (01) ==
LOC: D.ER 20:10
DX: R51 Headache (principal); I10 Essential (primary) hypertension; E78.5 Hyperlipidemia, unspecified

== ENCOUNTER 2019-11-29 15:49 | Emergency (ER) | payer MEDICAID ==
[~2019-11-29 15:49] MED LIST changes: +HYDROCODONE-A1 UDTA2 PO
[2019-11-29 15:55] VITALS: BP 122/75; Ht 167.6 cm
[2019-11-29] MEDS ORDERED: ZOCOR20 MG PO (16:22)
[2019-11-29] MEDS ORDERED: HYDROCHLOROTHIA25 MG PO (16:23)
[2019-11-29] MEDS ORDERED: SYMBICORT 16010.2 GM INH (16:24)
[2019-11-29] MEDS ORDERED: INCRUSE ELLI62.5 MCG INH (16:24)
[2019-11-29] MEDS ORDERED: SPIRIVA RESPIMAT4 G1 INH (16:25)
== END 2019-11-29 16:35 | disposition left against medical advice (07) ==
LOC: D.ER 15:49
DX: Z53.29 Procedure and treatment not carried out because of patient's decision for other reasons (principal); I10 Essential (primary) hypertension; E78.5 Hyperlipidemia, unspecified; J45.909 Unspecified asthma, uncomplicated; R73.03 Prediabetes; M54.9 Dorsalgia, unspecified

== ENCOUNTER → 2020-01-24 20:43 | Outpatient (CLI) | payer MEDICAID ==
[2019-11-29 15:55] VITALS: BMI 43.6
[~2020-01-24 20:43] MED LIST changes: +HYDROCHLOROTHIA25 MG PO; +INCRUSE ELLI62.5 MCG INH; +SPIRIVA RESPIMAT4 G1 INH; +SYMBICORT 16010.2 GM INH; +ZOCOR20 MG PO
[2020-01-24 21:16] LABS: BASOPHILS 0.2 % (0-2); EOSINOPHILS 5.7 % (0-7); HEMATOCRIT 42.2 % (36.0-48.0); IMMATURE GRANULOCYTES 0.1 % (0-5); LYMPHOCYTES 48.5 % (15-50); MCH 29.7 pg (26.0-34.0); MCHC 33.2 g/dL (31.0-37.0); MCV 89.6 fL (80.0-100.0); MEAN PLATELET VOLUME 11.6 fL (7.4-10.4); MONOCYTES 9.7 % (2-11); NEUTROPHILS 35.8 % (40-80); PLATELET COUNT 290 10x3/uL (130-400); RBC 4.71 10x6/uL (4.00-5.40); RDW 13.9 % (11.5-14.5); WBC 8.8 10x3/uL (4.8-10.8)
[2020-01-27 15:10] LABS: IGG SUBCLASS 1 542 mg/dL (248-810); IGG SUBCLASS 2 549 mg/dL (130-555); IGG SUBCLASS 3 73 mg/dL (15-102); IGG SUBCLASS 4 24 mg/dL (2-96); IGGS - IGG SERUM 1171 mg/dL (700-1600)
== END | disposition home or self-care (01) ==
LOC: D.LABREF 20:43
PROVIDERS: ATTEND Internal Medicine Pulmonary Disease
DX: J42 Unspecified chronic bronchitis (principal); D72.829 Elevated white blood cell count, unspecified

== ENCOUNTER 2020-03-06 19:13 | Emergency (ER) | payer MEDICARE ==
[~2020-03-06] VITALS: Ht 167.6 cm; Wt 118.2 kg
[2020-03-06 19:21] VITALS: Ht 167.6 cm; Wt 118.2 kg
[2020-03-06 19:53] LABS: BASOPHILS 0.3 % (0-2); EOSINOPHILS 3.6 % (0-7); HEMATOCRIT 41.7 % (36.0-48.0); HEMOGLOBIN 13.5 g/dL (12-16); IMMATURE GRANULOCYTES 0.3 % (0-5); LYMPHOCYTES 48.6 % (15-50); MCH 29.6 pg (26.0-34.0); MCHC 32.4 g/dL (31.0-37.0); MCV 91.4 fL (80.0-100.0); MEAN PLATELET VOLUME 10.8 fL (7.4-10.4); MONOCYTES 7.6 % (2-11); NEUTROPHILS 39.6 % (40-80); PLATELET COUNT 294 10x3/uL (130-400); RBC 4.56 10x6/uL (4.00-5.40); WBC 8.8 10x3/uL (4.8-10.8)
[2020-03-06 20:08] LABS: ALBUMIN 3.5 g/dL (3.4-5.0); ALKALINE PHOSPHATASE 100 U/L (30-120); ALT (SGPT) 26 U/L (10-68); AMYLASE - SERUM 39 U/L (25-115); BILIRUBIN - TOTAL 0.38 mg/dL (0.2-1.3); CALC OSMOLALITY 280 mosm/kg (275-300); CALCIUM 9.3 mg/dL (8.5-10.1); CARBON DIOXIDE 27.9 mmol/L (21.0-32.0); CHLORIDE - SERUM 103 mmol/L (98-107); CREATININE - SERUM 0.9 mg/dL (0.6-1.3); GLUCOSE 164 mg/dL (74-106); LIPASE 119 U/L (73-393); POTASSIUM - SERUM 3.6 mmol/L (3.5-5.1); SODIUM 139 mmol/L (136-145); TROPONIN-I < 0.017 ng/mL (0.000-0.060); UREA NITROGEN 11 mg/dL (7-18); eGFR NON AFRICAN AMERICAN 71 mL/min (90-120)
[2020-03-06 20:12] LABS: BACTERIA MODERATE /hpf (NEGATIVE); BILIRUBIN NEGATIVE (NEGATIVE); EPITHELIAL CELLS 0-5 /hpf (0-5); GLUCOSE NEGATIVE (NEGATIVE); KETONE NEGATIVE (NEGATIVE); NITRITE NEGATIVE (NEGATIVE); RED CELLS - URINE OCC /hpf (0-5); SPECIFIC GRAVITY 1.015 (1.005-1.020); UROBILINOGEN NORMAL (NORMAL); WHITE CELLS - URINE 0-5 /hpf (NEGATIVE)
[2020-03-06] MEDS ORDERED: MACROBID100 MG PO (20:59)
[2020-03-06 21:31] VITALS: BP 130/81
== END 2020-03-06 21:31 | disposition home or self-care (01) ==
LOC: D.ER 19:13
PROVIDERS: Family Medicine
DX: N39.0 Urinary tract infection, site not specified (principal); A59.9 Trichomoniasis, unspecified; J45.909 Unspecified asthma, uncomplicated; I10 Essential (primary) hypertension; E78.5 Hyperlipidemia, unspecified

== ENCOUNTER 2020-06-27 13:57 | Emergency (ER) | payer MEDICARE ==
[~2020-06-27] VITALS: Ht 167.6 cm; Wt 118.4 kg
[~2020-06-27 13:57] MED LIST changes: +MACROBID100 MG PO
[2020-06-27 14:13] VITALS: Ht 167.6 cm; Wt 118.4 kg
[2020-06-27] MEDS ORDERED: VOLTAREN75 MG PO (15:21)
[2020-06-27] MEDS ORDERED: ZANAFLEX4 MG PO (15:21)
[2020-06-27 15:33] VITALS: BP 110/71
== END 2020-06-27 15:42 | disposition home or self-care (01) ==
LOC: D.ER 13:57
DX: M25.511 Pain in right shoulder (principal); S29.012A Strain of muscle and tendon of back wall of thorax, initial encounter; I10 Essential (primary) hypertension; E78.5 Hyperlipidemia, unspecified; J45.909 Unspecified asthma, uncomplicated; R73.03 Prediabetes